=== PATIENT | male | born 1955 | race Caucasian/White ===

== ENCOUNTER 2017-08-19 04:18 | Outpatient (CLI) | payer BC | END 2017-08-19 23:59 | disposition home or self-care (01) | LOC: DIABETIC 04:18 | PROVIDERS: ATTEND Specialist | DX: E11.65 Type 2 diabetes mellitus with hyperglycemia (principal) | CPT/HCPCS: G0108 ==

== ENCOUNTER 2017-09-02 02:51 | Outpatient (CLI) | payer BC | END 2017-09-02 23:59 | disposition home or self-care (01) | LOC: DIABETIC 02:51 | PROVIDERS: ATTEND Specialist | DX: E11.65 Type 2 diabetes mellitus with hyperglycemia (principal) | CPT/HCPCS: G0109 ==

== ENCOUNTER 2017-09-16 04:01 | Outpatient (CLI) | payer BC | END 2017-09-16 23:59 | disposition home or self-care (01) | LOC: DIABETIC 04:01 | PROVIDERS: ATTEND Specialist | DX: E11.65 Type 2 diabetes mellitus with hyperglycemia (principal) | CPT/HCPCS: G0108 ==

== ENCOUNTER 2017-10-14 02:35 | Outpatient (CLI) | payer BC | END 2017-10-14 23:59 | disposition home or self-care (01) | LOC: DIABETIC 02:35 | PROVIDERS: ATTEND Specialist | DX: E11.65 Type 2 diabetes mellitus with hyperglycemia (principal) | CPT/HCPCS: G0109 ==